=== PATIENT | male | born 1975 | race Caucasian/White ===

== ENCOUNTER 2017-01-21 12:04 | Emergency (ER) | payer OTHER ==
[~2017-01-21] VITALS: Ht 180.3 cm; Wt 131.2 kg
[~2017-01-21 12:04] MED LIST: ALBU8.5H5 INH; AMPH30TA2 PO; MULT-26 PO
[2017-01-21] MEDS ORDERED: BUPIVACAINE 0.25% ONE (13:29)
[2017-01-21] MEDS ORDERED: BUPIVACAINE 0.25% INFIL ONE (13:30)
[2017-01-21] MEDS ORDERED: HYDROmorphone 1 MG/ML, 1ML IM ONE (14:00)
[2017-01-21] MEDS ORDERED: HYDROmorphone 1 MG/ML, 1ML ONE ×2 (14:20→14:24)
[2017-01-21 15:50] VITALS: BP 122/64
== END 2017-01-21 15:52 | disposition home or self-care (01) ==
LOC: ED 14:03
DX: L02.01 Cutaneous abscess of face (principal); F90.9 Attention-deficit hyperactivity disorder, unspecified type
CPT/HCPCS: 10060; 96372; 99283; J1170; J3490

== ENCOUNTER 2017-01-23 15:33 | Emergency (ER) | payer OTHER ==
[~2017-01-23] VITALS: Ht 180.3 cm; Wt 130.0 kg
[2017-01-23 15:43] VITALS: BP 121/85
[2017-01-23] MEDS ORDERED: HYDROcodone/APAP 5/325 TABLET ONE (16:15)
[2017-01-23] MEDS ORDERED: L.E.T SOLUTION TP ONE ×2 (16:17→16:30)
[2017-01-23] MEDS ORDERED: HYDROcodone/APAP 5/325 TABLET PO ONE ×2 (16:30)
== END 2017-01-23 17:15 | disposition home or self-care (01) ==
LOC: ED 17:11
DX: L02.01 Cutaneous abscess of face (principal); Z90.49 Acquired absence of other specified parts of digestive tract
CPT/HCPCS: 99283